=== PATIENT | female | born 1995 | race African-American/Black ===

== ENCOUNTER 2017-12-14 21:13 | Observation (INO) | payer MEDICAID, OTHER ==
[~2017-12-14] VITALS: Ht 160 cm; Wt 68.0 kg
[~2017-12-14 21:13] MED LIST: ABILIFY; WELLBUTRIN
[2017-12-14] MEDS ORDERED: ACET-2178 PO (21:45)
[2017-12-14] MEDS ORDERED: PNV1TABL76 PO (21:45)
[2017-12-14] MEDS ORDERED: LACTATED RINGERS 1,000 ML IV SCH (21:45)
[2017-12-14 21:53] LABS: CLARITY URINE CLOUDY (CLEAR); COLOR URINE DARK YELLOW (YELLOW); KETONES URINE TRACE (NEGATIVE); LEUKOCYTE ESTERASE URINE 3+ (NEGATIVE); NITRITE URINE POSITIVE (NEGATIVE); OCCULT BLOOD URINE NEGATIVE (NEGATIVE); PH URINE 5.5 (4.5-8.0); PROTEIN URINE TRACE (NEGATIVE); SPECIFIC GRAVITY URINE 1.028 (1.005-1.030)
== END 2017-12-14 23:34 | disposition home or self-care (01) ==
LOC: L&D 21:13
PROVIDERS: ADMIT Obstetrics & Gynecology; ATTEND Obstetrics & Gynecology
DX: O26.892 Other specified pregnancy related conditions, second trimester (principal); R10.9 Unspecified abdominal pain; Z3A.22 22 weeks gestation of pregnancy
CPT/HCPCS: 81003; 87077; 87086; 87186; 96360; 96361; 99281; G0378; J7120

== ENCOUNTER 2020-05-31 21:23 | Emergency (ER) | payer MEDICAID, OTHER ==
[~2020-05-31] VITALS: Ht 160 cm; Wt 75.0 kg
[~2020-05-31 21:23] MED LIST changes: -ABILIFY; +PNV1TABL76 PO; -WELLBUTRIN
[2020-05-31 21:35] VITALS: BP 126/79
== END 2020-05-31 23:45 | disposition left against medical advice (07) ==
LOC: ER 21:23
DX: R10.2 Pelvic and perineal pain (principal); Z53.21 Procedure and treatment not carried out due to patient leaving prior to being seen by health care provider

== ENCOUNTER 2020-06-01 12:26 | Emergency (ER) | payer OTHER ==
[~2020-06-01] VITALS: Ht 160 cm; Wt 75.0 kg
[2020-06-01] MEDS ORDERED: KETOROLAC 30MG/ML VIAL IV STA (12:58)
[2020-06-01] MEDS ORDERED: SODIUM CHLORIDE 0.9% 1,000 ML IV ONE (12:58)
[2020-06-01] MEDS ORDERED: IBUPROFEN 600MG TABLET PO ONE (13:30)
[2020-06-01 13:43] LABS: CLARITY URINE CLOUDY (CLEAR); COLOR URINE YELLOW (YELLOW); KETONES URINE NEGATIVE (NEGATIVE); LEUKOCYTE ESTERASE URINE 1+ (NEGATIVE); NITRITE URINE NEGATIVE (NEGATIVE); OCCULT BLOOD URINE NEGATIVE (NEGATIVE); PROTEIN URINE TRACE (NEGATIVE); SPECIFIC GRAVITY URINE 1.035 (1.005-1.030)
[2020-06-01] MEDS ORDERED: METRONIDAZOLE 500MG TABLET PO NR (14:00)
[2020-06-01 14:19] LABS: BASOPHILS % 1.1 % (0.0-2.0); HEMATOCRIT. 40.7 % (36.0-48.0); HEMOGLOBIN. 13.5 g/dL (12.0-16.0); LYMPHOCYTES % 34.8 % (20.0-50.0); MEAN CORPUSCULAR VOLUME 87.3 fL (81.0-99.0); MEAN PLATELET VOLUME 9.5 fl (7.4-10.4); MONOCYTES % 8.8 % (2.0-8.0); NEUTROPHILS % 53.3 % (40.0-76.0); PLATELET 286 x1000/uL (130-400); RED BLOOD CELL COUNT 4.66 mill/uL (4.2-5.4); RED CELL DISTRIBUTION WIDTH 13.4 % (11.6-14.6)
[2020-06-01 14:26] LABS: CHLORIDE 111 mEq/L (98-107)
[2020-06-01 14:34] VITALS: BP 109/68
[2020-06-01] MEDS ORDERED: AZITHROMYCIN 500 MG TABLET PO NR (14:45)
[2020-06-01] MEDS ORDERED: CEFTRIAXONE SODIUM 250 MG/VIAL IM NR (14:45)
[2020-06-03 04:07] LABS: NEISSERIA GONORRHOEAE NAA Negative (Negative)
== END 2020-06-01 14:58 | disposition home or self-care (01) ==
LOC: ER 13:15
DX: B75 Trichinellosis (principal); N89.8 Other specified noninflammatory disorders of vagina; N39.0 Urinary tract infection, site not specified; F17.200 Nicotine dependence, unspecified, uncomplicated
CPT/HCPCS: 36415; 80053; 81003; 81025; 85025; 87086; 87491; 87591; 93005; 96372; 99284; 99406; J0696; J1885; J7030

== ENCOUNTER 2020-07-07 19:01 | Emergency (ER) | payer OTHER ==
[~2020-07-07] VITALS: Ht 160 cm; Wt 76.0 kg
[2020-07-07 19:04] VITALS: BP 108/74
[2020-07-07] MEDS ORDERED: IBUPROFEN 600MG TABLET PO ONE (19:30)
[2020-07-07 20:41] LABS: CLARITY URINE CLEAR (CLEAR); COLOR URINE YELLOW (YELLOW); KETONES URINE NEGATIVE (NEGATIVE); LEUKOCYTE ESTERASE URINE NEGATIVE (NEGATIVE); NITRITE URINE NEGATIVE (NEGATIVE); OCCULT BLOOD URINE NEGATIVE (NEGATIVE); PH URINE 5.5 (4.5-8.0); PROTEIN URINE NEGATIVE (NEGATIVE); SPECIFIC GRAVITY URINE 1.034 (1.005-1.030)
[2020-07-07] MEDS ORDERED: CEFTRIAXONE SODIUM 250 MG/VIAL IM ONE (20:45)
[2020-07-07] MEDS ORDERED: METRONIDAZOLE 500MG TABLET PO ONE (20:45)
[2020-07-07] MEDS ORDERED: DOXYCYCLINE HYCLATE 100MG CAPSULE PO ONE (20:45)
[2020-07-07] MEDS ORDERED: AZITHROMYCIN 500 MG TABLET PO ONE (20:45)
[2020-07-12 04:08] LABS: NEISSERIA GONORRHOEAE NAA Negative (Negative)
== END 2020-07-07 21:54 | disposition home or self-care (01) ==
LOC: ER 19:01
DX: Z20.2 Contact with and (suspected) exposure to infections with a predominantly sexual mode of transmission (principal); A59.9 Trichomoniasis, unspecified; N76.0 Acute vaginitis
CPT/HCPCS: 81003; 81025; 87491; 87591; 96372; 99284; J0696

== ENCOUNTER 2020-12-01 15:14 | Emergency (ER) | payer MEDICAID, OTHER ==
[~2020-12-01] VITALS: Ht 160 cm; Wt 69.0 kg
[2020-12-01 15:16] VITALS: BP 127/58
[2020-12-01 16:28] LABS: CLARITY URINE CLOUDY (CLEAR); COLOR URINE YELLOW (YELLOW); KETONES URINE TRACE (NEGATIVE); LEUKOCYTE ESTERASE URINE NEGATIVE (NEGATIVE); NITRITE URINE POSITIVE (NEGATIVE); OCCULT BLOOD URINE NEGATIVE (NEGATIVE); PROTEIN URINE TRACE (NEGATIVE)
== END 2020-12-01 16:20 | disposition left against medical advice (07) ==
LOC: ER 15:14
DX: Z00.00 Encounter for general adult medical examination without abnormal findings (principal); Z71.6 Tobacco abuse counseling; F17.200 Nicotine dependence, unspecified, uncomplicated
CPT/HCPCS: 81003; 81025; 99283; 99406

== ENCOUNTER 2021-02-14 06:46 | Emergency (ER) | payer MEDICAID, OTHER | END 2021-02-14 07:14 | disposition left against medical advice (07) | LOC: ER 06:46 | DX: R10.9 Unspecified abdominal pain (principal); Z53.21 Procedure and treatment not carried out due to patient leaving prior to being seen by health care provider ==

== ENCOUNTER 2021-12-19 11:08 | Inpatient (IN) | payer OTHER ==
[~2021-12-19] VITALS: Ht 160 cm; Wt 76.7 kg
[2021-12-19] MEDS ORDERED: BLOOD SUGAR DIAGNOSTIC STRIP TEST NR (12:00)
[2021-12-19] MEDS ORDERED: BUTORPHANOL TARTRATE 2 MG/ML VIAL IV PRN (12:15)
[2021-12-19] MEDS ORDERED: LACTATED RINGERS 1,000 ML IV SCH ×2 (12:15→14:30)
[2021-12-19] MEDS ORDERED: CARBOPROST TROMETHAMINE 250 MCG/ML AMPUL IM PRN (12:15)
[2021-12-19] MEDS ORDERED: NALOXONE HCL 0.4 MG/ML 1ML VIAL IM PRN (12:15)
[2021-12-19] MEDS ORDERED: DEXT 5%/LR + PITOCIN 20UNITS/L 1,000 ML IV SCH ×2 (12:15→16:30)
[2021-12-19] MEDS ORDERED: METHYLERGONOVINE MALEATE 0.2 MG/ML IM PRN (12:15)
[2021-12-19] MEDS ORDERED: RHO(D) IMMUNE GLOBULIN 300 MCG/SYR IM ONE (12:15)
[2021-12-19 13:14] LABS: CLARITY URINE TURBID (CLEAR); COLOR URINE YELLOW (YELLOW); KETONES URINE NEGATIVE (NEGATIVE); LEUKOCYTE ESTERASE URINE NEGATIVE (NEGATIVE); NITRITE URINE NEGATIVE (NEGATIVE); OCCULT BLOOD URINE 1+ (NEGATIVE); PROTEIN URINE 1+ (NEGATIVE); SPECIFIC GRAVITY URINE 1.008 (1.005-1.030)
[2021-12-19 13:23] LABS: *AMPHETAMINES SCREEN URINE NEGATIVE (NEGATIVE); *BARBITURATES SCREEN URINE NEGATIVE (NEGATIVE)
[2021-12-19 13:24] LABS: *COCAINE SCREEN URINE NEGATIVE (NEGATIVE); CANNABINOID URINE SCREEN NEGATIVE (NEGATIVE); METHADONE URINE SCREEN NEGATIVE (NEGATIVE); OPIATES URINE SCREEN NEGATIVE (NEGATIVE); PHENCYCLIDINE URINE SCREEN NEGATIVE (NEGATIVE)
[2021-12-19 13:29] LABS: *BENZODIAZEPINES SCREEN URINE NEGATIVE (NEGATIVE)
[2021-12-19] MEDS ORDERED: PENICILLIN G POTASSIUM 5 MMU in DEXT 5% WATER 100 ML IV NR (13:30)
[2021-12-19 14:06] LABS: BASOPHILS % 0.5 % (0.0-2.0); EOSINOPHILS % 0.6 % (0.0-5.0); HEMATOCRIT. 37.2 % (36.0-48.0); HEMOGLOBIN. 12.4 g/dL (12.0-16.0); LYMPHOCYTES % 12.7 % (20.0-50.0); MEAN CORPUSCULAR HEMOGLOBIN 27.1 pg (28.0-32.0); MEAN CORPUSCULAR VOLUME 81.6 fL (81.0-99.0); MEAN PLATELET VOLUME 9.8 fl (7.4-10.4); MONOCYTES % 5.1 % (2.0-8.0); NEUTROPHILS % 81.1 % (40.0-76.0); PLATELET 325 x1000/uL (130-400); RED BLOOD CELL COUNT 4.55 mill/uL (4.2-5.4); RED CELL DISTRIBUTION WIDTH 14.8 % (11.6-14.6)
[2021-12-19 14:18] LABS: INR 0.9; PARTIAL THROMBOPLASTIN TIME 25.6 sec (23.4-31.0); PROTHROMBIN TIME 9.9 sec (9.6-11.0)
[2021-12-19] MEDS ORDERED: CEFAZOLIN SODIUM 1000MG/VIAL ONE (14:39)
[2021-12-19] MEDS ORDERED: ONDANSETRON HCL 4MG/2ML INJ ONE (14:39)
[2021-12-19] MEDS ORDERED: MORPHINE SULFATE/PF 1MG/ML 10ML AMP ONE (14:39)
[2021-12-19] MEDS ORDERED: OXYTOCIN 10 UNITS/ML 1ML ONE (14:39)
[2021-12-19] MEDS ORDERED: DEXAMETHASONE 4MG/ML 1ML VIAL ONE (14:40)
[2021-12-19] MEDS ORDERED: EPHEDRINE SULFATE 50MG/ML VIAL ONE (14:40)
[2021-12-19 14:48] LABS: HEPATITIS B SURFACE ANTIGEN NEGATIVE
[2021-12-19] MEDS ORDERED: NALOXONE HCL 0.4 MG/ML 1ML VIAL IV PRN (15:30)
[2021-12-19 15:36] LABS: *BARBITURATES SCREEN URINE NEGATIVE (NEGATIVE); *COCAINE SCREEN URINE NEGATIVE (NEGATIVE); OPIATES URINE SCREEN NEGATIVE (NEGATIVE)
[2021-12-19 15:37] LABS: *AMPHETAMINES SCREEN URINE NEGATIVE (NEGATIVE); *BENZODIAZEPINES SCREEN URINE NEGATIVE (NEGATIVE); PHENCYCLIDINE URINE SCREEN NEGATIVE (NEGATIVE)
[2021-12-19 15:39] LABS: CANNABINOID URINE SCREEN NEGATIVE (NEGATIVE); METHADONE URINE SCREEN NEGATIVE (NEGATIVE)
[2021-12-19] MEDS ORDERED: KETOROLAC 60MG/2ML VIAL IM ONE (15:45)
[2021-12-19] MEDS ORDERED: LANOLIN OINT 7GM TUBE TOP PRN (16:15)
[2021-12-19] MEDS ORDERED: ONDANSETRON HCL 4MG/2ML INJ IV PRN (16:15)
[2021-12-19] MEDS ORDERED: RHO(D) IMMUNE GLOBULIN 300 MCG/SYR IM PRN (16:15)
[2021-12-19] MEDS ORDERED: IBUPROFEN 400MG TABLET PO PRN (16:15)
[2021-12-19] MEDS ORDERED: BISACODYL 10MG SUPP PR PRN (16:15)
[2021-12-19] MEDS ORDERED: ACETAMINOPHEN WITH CODEINE 300/30MG TABLET PO PRN (16:15)
[2021-12-19] MEDS ORDERED: DIPHENHYDRAMINE 25MG CAPSULE PO PRN (16:15)
[2021-12-19] MEDS ORDERED: HEMORRHOIDAL SUPP PR PRN (16:15)
[2021-12-19] MEDS ORDERED: DEXT 5%/LACTATED RINGERS 1,000 ML IV SCH (16:30)
[2021-12-19] MEDS ORDERED: PENICILLIN G POTASSIUM 2.5 MMU in DEXTROSE 5% WATER 50 ML IV SCH (17:00)
[2021-12-19 18:10] VITALS: BP 108/61
[2021-12-19 20:00] VITALS: BP 100/47
[2021-12-19] MEDS: DOCUSATE SODIUM 100MG CAPSULE PO SCH (21:00)
[2021-12-19] MEDS: MAGNESIUM/ALUMINUM HYDROXIDE/SIMETHICONE 30ML UDC PO SCH (21:00)
[2021-12-19] MEDS: SIMETHICONE 80MG TABLET CHEW PO SCH (21:00)
[2021-12-20] VITALS: BP 101/50
[2021-12-20 04:00] VITALS: BP 96/55
[2021-12-20 07:36] LABS: BASOPHILS % 0.3 % (0.0-2.0); EOSINOPHILS % 0.3 % (0.0-5.0); HEMATOCRIT. 35.5 % (36.0-48.0); HEMOGLOBIN. 11.7 g/dL (12.0-16.0); LYMPHOCYTES % 16.2 % (20.0-50.0); MEAN CORPUSCULAR HEMOGLOBIN 27.1 pg (28.0-32.0); MEAN CORPUSCULAR VOLUME 82.5 fL (81.0-99.0); MEAN PLATELET VOLUME 9.9 fl (7.4-10.4); MONOCYTES % 6.3 % (2.0-8.0); NEUTROPHILS % 76.9 % (40.0-76.0); PLATELET 342 x1000/uL (130-400); RED BLOOD CELL COUNT 4.31 mill/uL (4.2-5.4); RED CELL DISTRIBUTION WIDTH 15.1 % (11.6-14.6)
[2021-12-20 07:45] VITALS: BP 110/74
[2021-12-20] MEDS: IBUPROFEN 800MG TABLET PO PRN ×2 (08:10→17:58)
[2021-12-20] MEDS: FERROUS SULFATE 325MG TABLET PO SCH ×2 (10:55→17:57)
[2021-12-20] MEDS: PRENATAL VIT/FE FUMARATE/FA TABLET PO SCH (10:56)
[2021-12-20] MEDS: MAGNESIUM/ALUMINUM HYDROXIDE/SIMETHICONE 30ML UDC PO SCH ×3 (10:56→21:00)
[2021-12-20] MEDS: SIMETHICONE 80MG TABLET CHEW PO SCH ×3 (10:56→21:00)
[2021-12-20] MEDS ORDERED: PENICILLIN G BENZATHINE 2,400,000 UNITS/4ML SYR IM NR (12:30)
[2021-12-20 16:25] VITALS: BP 112/52
[2021-12-20 20:00] VITALS: BP 116/68
[2021-12-20] MEDS: DOCUSATE SODIUM 100MG CAPSULE PO SCH (21:00)
[2021-12-21] VITALS: BP 134/79
[2021-12-21] MEDS: IBUPROFEN 800MG TABLET PO PRN ×2 (01:09→08:44)
[2021-12-21 04:01] VITALS: BP 121/84
[2021-12-21] MEDS ORDERED: IBUP-2030 PO ×2 (05:54)
[2021-12-21] MEDS ORDERED: FERR-63 PO ×2 (05:54)
[2021-12-21 08:00] VITALS: BP 104/75
[2021-12-21 08:14] LABS: BASOPHILS % 0.5 % (0.0-2.0); EOSINOPHILS % 0.8 % (0.0-5.0); HEMATOCRIT. 36.6 % (36.0-48.0); MEAN CORPUSCULAR HEMOGLOBIN 27.4 pg (28.0-32.0); MEAN CORPUSCULAR VOLUME 83.1 fL (81.0-99.0); MEAN PLATELET VOLUME 9.4 fl (7.4-10.4); NEUTROPHILS % 74.7 % (40.0-76.0); PLATELET 350 x1000/uL (130-400); RED CELL DISTRIBUTION WIDTH 15.2 % (11.6-14.6)
[2021-12-21] MEDS: MAGNESIUM/ALUMINUM HYDROXIDE/SIMETHICONE 30ML UDC PO SCH (08:44)
[2021-12-21] MEDS: FERROUS SULFATE 325MG TABLET PO SCH (08:44)
[2021-12-21] MEDS: PRENATAL VIT/FE FUMARATE/FA TABLET PO SCH (08:44)
[2021-12-21] MEDS: SIMETHICONE 80MG TABLET CHEW PO SCH (08:44)
== END 2021-12-21 12:40 | disposition home or self-care (01) | DRG 540 ==
LOC: 8 EST LDRP 11:08 → OBSVTOIN 11:08 → 8EST NSY 18:10 → 8EST 18:13
PROVIDERS: ADMIT Obstetrics & Gynecology; ATTEND Obstetrics & Gynecology
PROC: 10D00Z1 Extraction of Products of Conception, Low, Open Approach (ICD-10-PCS; principal; 2021-12-19)
DX: O34.211 Maternal care for low transverse scar from previous cesarean delivery (principal); O99.324 Drug use complicating childbirth; F31.9 Bipolar disorder, unspecified; F19.10 Other psychoactive substance abuse, uncomplicated; Z20.822 Contact with and (suspected) exposure to COVID-19; O99.344 Other mental disorders complicating childbirth; Z3A.38 38 weeks gestation of pregnancy; Z37.0 Single live birth
CPT/HCPCS: 36415; 76805; 76818; 80305; 81003; 85025; 86592; 86703; 86762; 86850; 86900; 87340; 87426; 88307; 99281; J0561; J0690; J1100; J1885; J2210; J2274; J2405; J2540; J2590; J3490; J7060; J7120; J7121